=== PATIENT | male | born 1975 | race Caucasian/White ===

== ENCOUNTER 2018-04-02 19:09 | Emergency (ER) | payer BC, OTHER ==
--- NOTE | 2018-04-02 19:30 | Emergency Department Record ---
History of Present Illness - General Chief Complaint: Fall Injury Stated Complaint: FALL/BACK PAIN Time Seen by Provider: 04/02/18 19:23 Source: Patient Mode of Arrival: Wheelchair Limitations: No limitations - History of Present Illness Initial Comments: pt slipped on ice and landed on r hip area. since then he he been having severe muscle spasm. no numbness. no loss of bowel or bladder control. MD Complaint: Fall Onset/Timin -: Hour(s) Fall From: Standing When Fall Occurred: 1-3 hours ACUTE CARE CERTIFIED NURSING ASSISTANT Fall Witnessed: No Place Fall Occurred: Home Loss of Consciousness: None Prolonged Down Time?: No Symptoms Prior to Fall: None Location: Back Severity: Severe Severity scale (1-10): 8 Quality: Tingling Context: Tripped/slipped Associated Symptoms: Denies - [place] Coma Scale Eye Response: (4) Open spontaneously Motor Response: (6) Obeys commands Verbal Response: (5) Oriented [place] Total: 15 - Related Data Previous Rx's Medication Instructions Recorded Diazepam [Valium] 5 mg PO Q8H #10 tab 04/02/18 Hydrocodone/Acetaminophen [Chapman 1 each PO Q6HR #10 tablet 04/02/18 5-325 Tablet] Ibuprofen [Motrin 600Mg] 600 mg PO Q6H #20 tablet 04/02/18 Allergies Allergy/AdvReac Type Severity Reaction Status Date / Time No Known Drug Allergies Allergy Verified 04/02/18 19:16 Travel Screening - Travel/Exposure Within Last 30 Days Have you traveled within the last 30 days?: No - Travel Symptoms Symptom Screening: None Review of Systems Reviewed: No additional complaints except as noted below Constitutional: Reports: As per HPI. Denies: Chills, Fever, Malaise, Night sweats, Weakness, Weight change Eyes: Reports: As per HPI. Denies: Eye discharge, Eye pain, Photophobia, Vision change ENT: Reports: As per HPI. Denies: Congestion, Dental pain, Ear pain, Epistaxis , Hearing loss, Throat pain Respiratory: Reports: As per HPI. Denies: Cough, Dyspnea, Hemoptysis, Stridor, Wheezes Cardiovascular: Reports: As per HPI. Denies: Arrhythmia, Chest pain, Dyspnea on exertion, Edema, Murmurs, Orthopnea, Palpitations, Paroxysmal nocturnal dyspnea, Rheumatic Fever, Syncope Endocrine: Reports: As per HPI. Denies: Fatigue, Heat or cold intolerance, Polydipsia, Polyuria Gastrointestinal: Reports: As per HPI. Denies: Abdominal pain, Constipation, Diarrhea, Hematemesis, Hematochezia, Melena, Nausea, Vomiting Genitourinary: Reports: As per HPI. Denies: Dysuria, Frequency, Hematuria, Incontinence, Retention, Testicular pain, Testicular mass, Urgency Musculoskeletal: Reports: As per HPI. Denies: Arthralgia, Back pain, Gout, Joint swelling, Myalgia, Neck pain Skin: Reports: As per HPI. Denies: Bruising, Change in color, Change in hair/ nails, Lesions, Pruritus, Rash Neurological: Reports: As per HPI. Denies: Abnormal gait, Confusion, Headache, Numbness, Paresthesias, Seizure, Tingling, Tremors, Vertigo, Weakness Psychiatric: Reports: As per HPI. Denies: Anxiety, Auditory hallucinations, Depression, Homicidal thoughts, Suicidal thoughts, Visual hallucinations Hematological/Lymphatic: Reports: As per HPI. Denies: Anemia, Blood Clots, Easy bleeding, Easy bruising, Swollen glands Past Medical History - SOCIAL HISTORY Smoking Status: Former smoker Alcohol Use: Occasional Drug Use: None - RESPIRATORY Hx Respiratory Disorders: No - CARDIOVASCULAR Hx Cardio Disorders: No - NEURO Hx Neuro Disorders: No - GI Hx GI Disorders: No - Hx Genitourinary Disorders: No - MUSCULOSKELETAL Hx Musculoskeletal Disorders: No - PSYCH Hx Psych Problems: No - HEMATOLOGY/ONCOLOGY Hx Hematology/Oncology Disorders: No Family Medical History Any Significant Family History?: No Family Hx Comment (NOT TO BE USED IN PLACE OF ITEMS BELOW): NONE Physical Exam - General General Appearance: Alert, Oriented x3, Cooperative, Moderate distress - Head Head exam: Normal inspection - Eye Eye exam: Normal appearance, PERRL, EOMI Pupils: Normal accommodation - ENT ENT exam: Normal exam, Mucous membranes moist, Normal external ear exam, Normal orophraynx Ear exam: Normal external inspection. negative: External canal tenderness Nasal Exam: Normal inspection. negative: Discharge, Sinus tenderness Mouth exam: Normal external inspection, Tongue normal Teeth exam: Normal inspection. negative: Dental caries Throat exam: Normal inspection. negative: Tonsillar erythema, Tonsillar exudate - Neck Neck exam: Normal inspection, Full ROM. negative: Tenderness - Respiratory Respiratory exam: Normal lung sounds bilaterally. negative: Respiratory distress - Cardiovascular Cardiovascular Exam: Regular rate, Normal rhythm, Normal heart sounds - GI/Abdominal GI/Abdominal exam: Soft, Normal bowel sounds. negative: Tenderness - Rectal Rectal exam: Deferred - exam: Deferred - Extremities Extremities exam: Normal inspection, Full ROM, Normal capillary refill. negative: Tenderness - Back Back exam: Reports: Muscle spasm, Tenderness. Denies: Full ROM, Rash noted - Neurological Neurological exam: Alert, CN II-XII intact, Normal gait, Oriented X3 - Psychiatric Psychiatric exam: Normal affect, Normal mood - Skin Skin exam: Dry, Intact, Normal color, Warm Course Vital Signs 04/02/18 19:15 Temperature 98.4 F Pulse Rate [ 61 Pulse Ox Probe] Respiratory 20 Rate Blood Pressure 163/93 [Left Arm] Pulse Ox 99 Disposition Disposition: Discharge Clinical Impression: Lumbar strain Qualifiers: Encounter type: initial encounter Qualified Code(s): S39.012A - Strain of muscle, fascia and tendon of lower back, initial encounter Disposition: Home, Self-Care Condition: (1) Good Instructions: Low Back Strain (ED) Additional Instructions: follow up with family doctor. return sooner if worse. no lifting greater then 10 lbs for 10 days. ice to sore area Prescriptions: Hydrocodone/Acetaminophen [Chapman 5-325 Tablet] 1 each PO Q6HR #10 tablet Diazepam [Valium] 5 mg PO Q8H #10 tab Ibuprofen [Motrin 600Mg] 600 mg PO Q6H #20 tablet Forms: Patient Portal Access, Return to Work/School Quality - Quality Measures Quality Measures: N/A - Blood Pressure Screening Does Patient Have Any of the Following: No Blood Pressure Classification: Hypertensive Reading Systolic Measurement: 163 Diastolic Measurement: 93 Screening for High Blood Pressure: < First Hypertensive BP, F/U Documented > [ [id number]] First Hypertensive Follow-up Interventions: Follow-up with rescreen GT 1 day and LT 4 weeks.
[2018-04-02] MEDS: DIAZEPAM (VALIUM) 5MG/ML **10ML VIAL IM ONE (19:40)
[2018-04-02] MEDS: PROMETHAZINE HCL 25 MG/ML VIAL IM ONE (19:42)
[2018-04-02] MEDS: KETOROLAC 30 MG/ML VIAL IM ONE (19:42)
[2018-04-02] MEDS: HYDROMORPHONE HCL 2 MG/ML VIAL IM ONE (19:42)
--- NOTE | 2018-04-03 15:07 | RADIOLOGY REPORT ---
EXAM: LUMBAR SPINE HISTORY: FALL WITH LOWER BACK PAIN. TECHNIQUE: Three views of the lumbar spine were obtained. Comparison: None. FINDINGS: The lumbar vertebral heights are maintained with intact alignment. Mild disk space height loss at L5-S1. IMPRESSION: 1. THE LUMBAR VERTEBRAL BODY HEIGHTS ARE MAINTAINED. 2. MILD DISK SPACE HEIGHT LOSS AT L5-S1, MAY REPRESENT UNDERLYING DISK DEGENERATION. JOB NUMBER: [id number] MTDD
--- NOTE | 2018-04-03 15:10 | RADIOLOGY REPORT ---
EXAM: PELVIC HISTORY: FALL, RIGHT SIDED PAIN. TECHNIQUE: A single frontal view of the pelvis was obtained. Comparison: None. FINDINGS: No acute fracture is seen. No evidence of dislocation on this single view study. Indeterminate 40 x 24 mm area of peripheral sclerosis with central lucency in the proximal left femur in the intertrochanteric region. IMPRESSION: 1. NO ACUTE OSSEOUS FINDINGS. 2. INDETERMINATE SCLEROTIC REGION WITHIN THE INTERTROCHANTERIC REGION OF THE LEFT FEMUR. JOB NUMBER: [id number] [facility]
== END 2018-04-02 21:26 | disposition home or self-care (01) ==
LOC: ER 19:09
DX: S39.012A Strain of muscle, fascia and tendon of lower back, initial encounter (principal); M25.551 Pain in right hip; W00.0XXA Fall on same level due to ice and snow, initial encounter; Y92.009 Unspecified place in unspecified non-institutional (private) residence as the place of occurrence of the external cause; Z87.891 Personal history of nicotine dependence
CPT/HCPCS: 99283; 96372; 99284; 72100; 72170; J1885; J1170; J3360; J2550